=== PATIENT | male | born 1970 | race Caucasian/White ===

== ENCOUNTER 2025-02-08 11:32 | Observation (INO) | payer MEDICARE, MEDICAID ==
[~2025-02-08] VITALS: Ht 180.3 cm; Wt 111.5 kg
[2025-02-08 12:37] LABS: BASOPHILS ABSOLUTE AUTO 0.05 K/mm3 (0.00-0.23); BASOPHILS PERCENT AUTO 1 % (0-2); EOSINOPHILS ABSOLUTE AUTO 0.26 K/mm3 (0.00-0.68); EOSINOPHILS PERCENT AUTO 5 % (0-6); Hematocrit 39.7 % (37.0-53.0); Hemoglobin 13.3 g/dL (13.5-17.5); IMMATURE GRAN ABSOLUTE AUTO 0.01 K/mm3 (0.00-0.10); IMMATURE GRAN PERCENT AUTO 0 % (0-1); LYMPHOCYTES ABSOLUTE AUTO 1.70 K/mm3 (0.84-5.20); LYMPHOCYTES PERCENT AUTO 34 % (21-46); MONOCYTES ABSOLUTE AUTO 0.51 K/mm3 (0.16-1.47); MONOCYTES PERCENT AUTO 10 % (4-13); Mean Corpuscular HGB Conc 33.5 g/dL (31.5-36.5); Mean Corpuscular Volume 99 fL (80-100); NEUTROPHILS ABSOLUTE AUTO 2.54 K/mm3 (1.96-9.15); NEUTROPHILS PERCENT AUTO 50 % (41-73); NRBC ABSOLUTE 0.00 K/mm3 (0.00-0.02); NRBC Auto 0.0 /100 WBC (0.0-0.2); Platelet Count 103 K/mm3 (150-400); RDW Coefficient Variation 15.3 % (11.7-14.2); RDW Standard Deviation 55.8 fL (35.1-46.3)
[2025-02-08 13:22] LABS: Alanine Aminotransfer (ALT/SGP 21.0 U/L (12-78); Albumin, Blood 2.6 g/dL (3.4-5.0); Albumin/Globulin Ratio 0.8 (0.8-1.8); Anion Gap 5.0 mmol/L (3-11); Aspartate Aminotrans (AST/SGOT 28.0 U/L (12-37); Bilirubin, Total 1.4 mg/dL (0.1-1.0); Blood Urea Nitrogen 18.0 mg/dL (8-24); CO2, Blood 26.0 mmol/L (21-32); Calcium, Blood 8.7 mg/dL (8.5-10.1); Chloride, Blood 114.0 mmol/L (98-108); Creatinine, Blood 1.07 mg/dL (0.60-1.20); Globulin, Blood 3.3 g/dL (2.2-4.0); Glucose, Blood 131.0 mg/dL (70-99); Potassium, Blood 4.7 mmol/L (3.5-5.5); Sodium, Blood 140.0 mmol/L (136-145); Total Protein, Blood 5.9 g/dL (6.4-8.2)
[2025-02-08] MEDS ORDERED: LACT10SY PO (15:39)
[2025-02-08] MEDS ORDERED: Lactulose 200 GM/300 ML Enema 300ML BTL PR STA (17:23)
[2025-02-08 21:20] VITALS: BP 136/77
[2025-02-09 05:20] VITALS: BP 124/71
--- NOTE | 2025-02-09 05:53 | NUR ---
Shift Summary Pt admitted to this floor from ED for hepatic encepholopathy. In ED pt ammonia was elevated 200+, he recieved PO lactulose and a lactulose enema. Per report he had a large BM. ED said he was very confused and impulsive when he had to pee. Upon arrival to this unit his conginition was clearing. He still gets out of bed without calling when he needs to pee but he's easily oriented to the bathroom. Pt refuses to use FWW and prefers to use furniture/doors/handles ect. He is AOx3-4, lethargic and slept t/o the night, only waking to use the bathroom. He had two loose BMs in addition to the one in ED.
[2025-02-09 07:20] VITALS: BP 121/70
[2025-02-09 09:10] LABS: Hematocrit 41.8 % (37.0-53.0); Hemoglobin 14.0 g/dL (13.5-17.5); Mean Corpuscular HGB Conc 33.5 g/dL (31.5-36.5); Mean Corpuscular Volume 98 fL (80-100); NRBC ABSOLUTE 0.00 K/mm3 (0.00-0.02); NRBC Auto 0.0 /100 WBC (0.0-0.2); Platelet Count 107 K/mm3 (150-400); RDW Coefficient Variation 15.4 % (11.7-14.2); RDW Standard Deviation 55.1 fL (35.1-46.3)
[2025-02-09 09:29] LABS: Anion Gap 6.0 mmol/L (3-11); Blood Urea Nitrogen 14.0 mg/dL (8-24); CO2, Blood 22.0 mmol/L (21-32); Calcium, Blood 8.7 mg/dL (8.5-10.1); Chloride, Blood 112.0 mmol/L (98-108); Creatinine, Blood 0.87 mg/dL (0.60-1.20); Glucose, Blood 105.0 mg/dL (70-99); Potassium, Blood 4.1 mmol/L (3.5-5.5); Sodium, Blood 136.0 mmol/L (136-145)
[2025-02-09] MEDS ORDERED: LACT10SY PO (13:05)
[2025-02-09 15:36] VITALS: BP 130/68
--- NOTE | 2025-02-09 17:09 | NUR ---
SHIFT SUMMARY PT AOX4, COOPERATIVE, ABLE TO MAKE NEEDS KNOWN. PT IS IND IN ROOM USING FWW. TOLERATING MEDICATION. HAS SLEPT IN BED MOST OF DAY. AWAITING TRANSPORT TO GET HERE WHICH IS FAMILY FRIEND OF PT. DRIVING FROM [place], INFORMED THIS RN THEY WOULD BE HERE IN ABOUT AN HOUR AND 15 MINS. BED IN LOWEST POSITION, CALL LIGHT WITHIN REACH.
== END 2025-02-09 18:38 | disposition home or self-care (01) ==
LOC: ER 11:32 → MEDS 11:33
PROVIDERS: Emergency Medicine; ADMIT Internal Medicine
DX: K76.82 Hepatic encephalopathy (principal); T47.3X6A Underdosing of saline and osmotic laxatives, initial encounter; Z91.148 Patient's other noncompliance with medication regimen for other reason; K70.9 Alcoholic liver disease, unspecified; F10.988 Alcohol use, unspecified with other alcohol-induced disorder; D69.6 Thrombocytopenia, unspecified; Z90.5 Acquired absence of kidney
CPT/HCPCS: 36415; 80048; 80053; 82140; 82248; 85025; 85027; 93005; 93010; 97165; 97530; 99285-25; A9270; G0378